=== PATIENT | female | born 2005 | race Two or more races ===

== ENCOUNTER 2024-11-25 01:49 | Emergency (ER) | payer MEDICAID, SELFPAY ==
[~2024-11-25] VITALS: Ht 170.2 cm; Wt 144.6 kg
--- NOTE | 2024-11-25 02:32 | ED.PDOC ---
GI ASSESSMENT HPI Comments 19-year-old female came to ER for GI bleed. Patient has no history of abdominal surgeries. 11:00 p.m. last night, patient admitted bathroom, was complaining of abdominal pain, had an episode of nausea and vomiting, had an episode of diarrhea and was surprised when she saw bright red blood with her stools. No prior history of GI bleed Chief Complaint: GI Bleed Time Seen by MD: 02:31 Primary Care Provider: ELZBIETA Fregoso Notes: Nurses Notes Allergies: Coded Allergies: Penicillins (Verified Allergy, Unknown, 09/13/14) Uncoded Allergies: PENICILLIN (Allergy, Mild, RASH, 09/23/12) Information Source: Patient Mode of Arrival: Ambulatory Timing: Hours Duration: Minutes Prehospital treatment: None Quality: Aching Vomitus: Watery Stool: Blood Streaked, Loose, Watery Severity: Moderate Recent: None Recent Hx of: None Pain Location: Epigastric Modifying Factors: Nothing Associated sign and symptoms: Nausea, Vomiting, Diarrhea, Abdominal Pain, Blood in Stool Past Medical History PAST MEDICAL HISTORY: Denies Surgical History: Tonsillectomy Surgical History (Other): Jaw surgery 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 Family History Family History: No family hx of Cancer, No family hx of DM, No family hx of Heart delia, No family hx of HTN Social History Smoker: Secondhand Alcohol: Denies ETOH Use Drugs: Denies Drug Use Lives In: Home Constitutional: denies: chills, diaphoresis, fatigue, fever, malaise, sweats, weakness, others EENTM: denies: blurred vision, double vision, ear bleeding, ear discharge, ear drainage, ear pain, ear ringing, eye pain, eye redness, hearing loss, mouth pain, mouth swelling, nasal discharge, nose bleeding, nose congestion, nose pain, photophobia, tearing, throat pain, throat swelling, voice changes, others Respiratory: denies: cough, hemoptysis, orthopnea, SOB at rest, shortness of breath, SOB with excertion, stridor, wheezing, others Cardiovascular: denies: chest pain, dizzy spells, diaphoresis, Dyspnea on exertion, edema, irregular heart beat, left arm pain, lightheadedness, palpitations, PND, syncope, others Gastrointestinal: reports: abdominal pain, blood streaked bowels, diarrhea, nausea, vomiting Physical Exam General Appearance: No Apparent Distress, Normal HEENT: Normal ENT Inspection, Pharynx Normal, TMs Normal Neck: Full Range of Motion, Non-Tender, Normal, Normal Inspection Respiratory: Chest Non-Tender, Lungs Clear, No Accessory Muscle Use, No R espiratory Distress, Normal Breath Sounds Cardiovascular: No Edema, No JVD, No Murmur, No Gallop, Normal Peripheral Pulses, Regular Rate/Rhythm Breast Exam: Deferred Gastrointestinal: Epigastric, No Organomegaly, No Pulsatile Mass, Normal Bowel Sounds, Soft, Tenderness Genitalia: Deferred Pelvic: Deferred Rectal: Deferred Extremities: No calf tenderness, Normal capillary refill, Normal inspection, Normal range of motion, Non-tender, No pedal edema Musculoskeletal : Apperance: Normal Neurologic: Alert, manager games II-XII nml as Tested, No Motor Deficits, Normal Affect, Normal Mood, No Sensory Deficits Cerebellar Function: Normal Reflexes: Normal Skin: Dry, Normal Color, Warm Lymphatic: No Adenopathy Was a procedure done? Was a procedure done?: No GI differential Dx Differential Diagnosis: Constipation, Diverticular disease, Gastritis/PUD, Gastroenteritis, GI hemorrhage, UTI, Urolithiasis, Anemia X-Ray, Labs, Meds, VS Vital Signs Date Time Temp Pulse Resp B/P (MAP) Pulse Ox O2 Delivery O2 Flow Rate FiO2 11/25/24 03:50 98.5 90 18 143/89 (107) 98 98.5 11/25/24 03:50 90 18 98 Room Air 11/25/24 02:20 97.8 95 16 118/61 (80) 98 97.8 Lab Test 11/25/24 02:36 11/25/24 02:25 Range/Units Urine Color Light-brown Yellow Urine Clarity Turbid H Clear Urine pH 5.5 5.0-9.0 Urine Specific [place] 1.017 1.001-1.035 Urine Protein 1+ H Negative Urine Ketones 1+ H Negative Urine Blood 3+ H Negative /uL Urine Nitrite Negative Negative Urine Bilirubin Negative Negative Urine Urobilinogen Normal Negative mg/dL Urine Leukocyte Esterase 1+ Negative /uL Urine RBC 15 0 - 4 /hpf Urine Microscopic WBC 11 H 0-5 /HPF Urine Squamous Epithelial Cells Few <5 /hpf Urine Bacteria None seen None Seen /hpf Urine Mucus Few None Seen Urine Glucose Normal Normal mg/dL White Blood Count 17.5 H 4.4-10.8 10^3/uL Red Blood Count 5.59 H 4.0-5.20 10^6/uL Hemoglobin 14.9 12.2-16.2 g/dL Hematocrit 44.8 36.0-46.0 % Mean Corpuscular Volume 80.0 80.0-100.0 fL Mean Corpuscular Hemoglobin 26.6 L 28.0-32.0 pg Mean Corpuscular Hemoglobin Concent 33.2 32.0-36.0 g/dL Red Cell Distribution Width 16.0 H 11.8-14.3 % Platelet Count 388 140-450 10^3/uL Mean Platelet Volume 7.4 6.9-10.8 fL Neutrophils (%) (Auto) 88.7 H 37.0-80.0 % Lymphocytes (%) (Auto) 6.0 L 10.0-50.0 % Monocytes (%) (Auto) 5.0 0.0-12.0 % Eosinophils (%) (Auto) 0.2 0.0-7.0 % Basophils (%) (Auto) 0.1 0.0-2.0 % Neutrophils # (Auto) 15.5 H 1.6-8.6 10 ^3/uL Lymphocytes # (Auto) 1.1 0.4-5.4 10 ^3/uL Monocytes # (Auto) 0.9 0-1.3 10 ^3/uL Eosinophils # (Auto) 0 0-0.8 10 ^3/uL Basophils # (Auto) 0 0-0.2 10 ^3/uL Nucleated Red Blood Cells 0.0 % Sodium Level 137 136-145 mmol/L Potassium Level 3.6 3.5-5.1 mmol/L Chloride Level 102 98-107 mmol/L Carbon Dioxide Level 24 20-31 mmol/L Anion Gap 11 5-15 Blood Urea Nitrogen 16 9-23 mg/dL Creatinine 0.90 0.550-1.02 mg/dL Glomerular Filtration Rate Calc 94 >90 mL/min BUN/Creatinine Ratio 17.8 10.0-20.0 Serum Glucose 105 74-106 mg/dL Calcium Level 10.0 8.7-10.4 mg/dL Total Bilirubin 0.5 0.2-1.0 mg/dL Aspartate Amino Transferase (AST) 21 13-40 U/L Alanine Aminotransferase (ALT) 38 7-40 U/L Alkaline Phosphatase 68 46-116 U/L Total Protein 7.7 5.7-8.2 g/dL Albumin 4.9 H 3.2-4.8 g/dL Current Medications Medications (Trade) Dose Ordered Sig/Dionne Route Start Time Stop Time Status Last Admin Famotidine (Pepcid Tablet) 20 mg ONCE ONCE PO 11/25/24 02:15 11/25/24 02:16 DC 11/25/24 03:50 Ondansetron HCl (Zofran Po) 4 mg ONCE ONCE PO 11/25/24 02:15 11/25/24 02:16 DC 11/25/24 03:50 Al Hydrox/Mg Hydrox/Simethicone (Maalox Plus) 15 ml ONCE ONCE PO 11/25/24 02:15 11/25/24 02:16 DC 11/25/24 03:50 Time of 1ST Reevaluation: 02:28 Reevaluation 1ST: Improved Patient Education/Counseling: Diagnosis, Treatment Family Education/Counseling: No Family Present Departure 1 Departure Time of Disposition: 04:53 (Patient's white count was elevated likely in the setting of demargination from vomiting. Patient received medications feeling better. We will discharge patient home with outpatient follow up) Impression: Primary Impression: Gastroenteritis Additional Impression: Bright red blood per rectum Disposition: HOME / SELF CARE / HOMELESS Condition: Stable Additional Instructions: Your workup shows that you likely have colitis. You were prescribed antibiotics. Please take as directed. You referred to the Gastroenterology for further workup. Please call for an appointment. If your symptoms worsen or you have any other concerns please return to the emergency room e-Prescriptions Ciprofloxacin Hcl (Ciprofloxacin Hcl) 500 Mg Tab 1 TAB PO BID for 5 Days, #10 TAB Prov: LAUREN MURPHY MD 11/25/24 Metronidazole (Flagyl) 500 Mg Tab 1 TAB PO TID for 5 Days, #15 TAB Prov: LAUREN MURPHY MD 11/25/24 Discharged With: Self Critical Care Note Critical Care Time?: No Stability Stability form required: No Heart Score Heart Score: Heart Score Response (Comments) Value History N/A 0 EKG N/A 0 Age N/A 0 Risk Factors N/A 0 Troponin N/A 0 Total 0 I personally scribed for LAUREN MURPHY MD ([email or web address]) on 11/25/24 at 02:32. Electronically submitted by Rober Gallo ([email or web address]). LAUREN MURPHY MD Nov 25, 2024 02:32
[2024-11-25 02:38] LABS: Urine Bacteria None Seen /hpf (None Seen)
[2024-11-25 02:43] LABS: Basophils # (auto) 0 10 ^3/uL (0-0.2); Basophils % (auto) 0.1 % (0.0-2.0); Eosinophils # (auto) 0 10 ^3/uL (0-0.8); Lymphocytes # (auto) 1.1 10 ^3/uL (0.4-5.4)
[2024-11-25 02:45] LABS: Eosinophils % (auto) 0.2 % (0.0-7.0); Hematocrit 44.8 % (36.0-46.0); Hemoglobin 14.9 g/dL (12.2-16.2); Mean Corpuscular Hemoglobin 26.6 pg (28.0-32.0); Mean Corpuscular Hgb Conc. 33.2 g/dL (32.0-36.0); Monocytes # (auto) 0.9 10 ^3/uL (0-1.3); Neutrophils # (auto) 15.5 10 ^3/uL (1.6-8.6); Neutrophils % (auto) 88.7 % (37.0-80.0); Platelet Count (auto) 388 10^3/uL (140-450); Red Blood Cells 5.59 10^6/uL (4.0-5.20); White Blood Cell 17.5 10^3/uL (4.4-10.8)
[2024-11-25 03:00] LABS: Alanine Aminotransferase 38 U/L (7-40); Alkaline Phosphatase 68 U/L (46-116); Chloride 102 mmol/L (98-107)
[2024-11-25 03:01] LABS: Albumin 4.9 g/dL (3.2-4.8); Anion Gap 11 (5-15); Aspartate Aminotransferase 21 U/L (13-40); BUN/Creatinine Ratio 17.8 (10.0-20.0); Bilirubin, Total 0.5 mg/dL (0.2-1.0); Blood Urea Nitrogen 16 mg/dL (9-23); Carbon Dioxide 24 mmol/L (20-31); Glucose 105 mg/dL (74-106); Potassium 3.6 mmol/L (3.5-5.1); Sodium 137 mmol/L (136-145); Total Protein 7.7 g/dL (5.7-8.2)
[2024-11-25 03:05] LABS: Urine Blood 3+ /uL (Negative); Urine Clarity Turbid (Clear); Urine Color Light-Brown (Yellow); Urine Mucus FEW (None Seen); Urine Protein, UAD 1+ (Negative); Urine Specific Gravity 1.017 (1.001-1.035); Urine Squamous Epithelial Cell FEW /hpf (<5); Urine Urobilinogen Normal (Negative); Urine WBC 11 /HPF (0-5); Urine pH 5.5 (5.0-9.0)
[2024-11-25 03:50] VITALS: BP 143/89; PULSE 90; RESP 18; TEMP 98.5; O2SAT 98
[2024-11-25] MEDS: MAALOX PLUS or MAALOX 30 ML PO ONE (03:50)
[2024-11-25] MEDS: FAMOTIDINE 20 MG TAB PO ONE (03:50)
[2024-11-25] MEDS: ONDANSETRON ODT 4 MG TAB PO ONE (03:50)
[2024-11-25] MEDS ORDERED: METR-344 PO (04:56)
[2024-11-25] MEDS ORDERED: CIPR500T4 PO (04:56)
[2024-11-25] MEDS: metroNIDAZOLE 500 MG TAB PO ONE (05:13)
[2024-11-25] MEDS: CIPROFLOXACIN HCL 500 MG TAB PO ONE (05:13)
== END 2024-11-25 05:14 | disposition home or self-care (01) ==
LOC: ER 01:49
DX: K52.9 Noninfective gastroenteritis and colitis, unspecified (principal); K62.5 Hemorrhage of anus and rectum; F17.200 Nicotine dependence, unspecified, uncomplicated; Z90.89 Acquired absence of other organs; Z88.0 Allergy status to penicillin
CPT/HCPCS: 36415; 80053; 81001; 85025; 99284; Q0162

== ENCOUNTER 2025-06-11 23:59 | Emergency (ER) | payer SELFPAY ==
[~2025-06-11] VITALS: Ht 167.6 cm; Wt 133.2 kg
[~2025-06-11 23:59] MED LIST: CIPR500T4 PO; METR-344 PO
--- NOTE | 2025-06-12 00:13 | ED.PDOC ---
History of Present Illness(SKN HPI Comments 19-year-old, morbidly obese female presents with chief complaint of abscess to her tailbone 4, approximately, 2 weeks. Chief Complaint: Abscess Time Seen by MD: 00:52 Primary Care Provider: ELZBIETA History of Present Illness: Nurses Notes, Medications, Allergies Allergies: Coded Allergies: Penicillins (Verified Allergy, Unknown, 09/13/14) Uncoded Allergies: PENICILLIN (Allergy, Mild, RASH, 09/23/12) Home Meds Active Scripts Ciprofloxacin Hcl (Ciprofloxacin Hcl) 500 Mg Tab, 1 TAB PO BID for 5 Days, #10 TAB Prov:LAUREN MURPHY MD 11/25/24 Metronidazole (Flagyl) 500 Mg Tab, 1 TAB PO TID for 5 Days, #15 TAB Prov:LAUREN MURPHY MD 11/25/24 Information Source: Patient Mode of Arrival: EMS Severity: Moderate Timing: Weeks Duration: Since onset Prehospital treatment: None Past Medical History PAST MEDICAL HISTORY: Denies Surgical History: Tonsillectomy 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 Family History Family History: No family hx of Cancer, No family hx of DM, No family hx of Heart delia, No family hx of HTN Social History Smoker: Secondhand Alcohol: Denies ETOH Use Drugs: Denies Drug Use Lives In: Home All Other Systems: Reviewed and Negative (Comprehensive review of systems are negative unless otherwise stated in HPI) Physical Exam General Appearance: No Apparent Distress, Obese HEENT: Pharynx Normal Neck: Full Range of Motion, Non-Tender Respiratory: Lungs Clear, No Respiratory Distress, Normal Breath Sounds Cardiovascular: No Murmur, Normal Peripheral Pulses, Regular Rate/Rhythm Breast Exam: Deferred Gastrointestinal: No Organomegaly, Non Tender, No Pulsatile Mass, Normal Bowel Sounds, Soft Genitalia: Deferred Pelvic: Deferred Rectal: Deferred Extremities: Normal range of motion Musculoskeletal : Apperance: Normal Neurologic: Alert, No Motor Deficits, Normal Affect, Normal Mood, No Sensory Deficits Cerebellar Function: Normal Reflexes: NOT DONE Skin: Dry, Normal Color, Warm, Wounds (Hard non fluctuant lump to coccyx with surrounding erythema no noted drainage or central opening) Lymphatic: No Adenopathy Was a procedure done? Was a procedure done?: No Differential Diagnosis (INTG) Abscess: Abscess, Bacteremia, Cellulitis, Erysipelas, Gas Gangrene X-Ray, Labs, Meds, VS Vital Signs Date Time Temp Pulse Resp B/P (MAP) Pulse Ox O2 Delivery O2 Flow Rate FiO2 06/12/25 03:07 100.8 93 18 114/71 (85) 100 100.8 06/12/25 03:07 93 18 100 Room Air 06/12/25 00:07 98.6 93 18 148/102 97 98.6 X-Ray, Labs, Meds, VS Comment Script trial of antibiotics and NSAID. Advised to take medication as prescribed side effects discussed. Advised to follow up with his PCP in two days, urgent care, or back in the ER for wound re-evaluation. Advised to keep dressing on, and clean change twice daily. Patient was also advised to return to the ER for increasing pain, numbness, weakness, swelling, fever or chills. Patient indicates understanding and agrees with discharge plan of care. Time of 1ST Reevaluation: 00:52 Reevaluation 1ST: Unchanged Time of 2ND Reevaluation: 02:00 Reevaluation 2ND: Improved Patient Education/Counseling: Diagnosis, Treatment, Need For Follow Up Family Education/Counseling: No Family Present SEPSIS Sepsis Screen Date sepsis recognized/suspect: Jun 12, 2025 Time Sepsis recognized/suspect: 0009 Recent Procedure: No On Antibiotic Therapy: No Respiratory Rate >20: No Heart Rate >90: Yes Temp<36 C (96.8 F) or >38.3 C: No SBP <90 or MAP <65 mmHG: No New Acute Mental Status Change: No Is the patient on CPAP, BIPAP,: No Vital Signs Date Time Temp Pulse Resp B/P (MAP) Pulse Ox O2 Delivery O2 Flow Rate FiO2 06/12/25 03:07 100.8 93 18 114/71 (85) 100 100.8 06/12/25 03:07 93 18 100 Room Air 06/12/25 00:07 98.6 93 18 148/102 97 98.6 Departure 1 Departure Time of Disposition: 02:00 Impression: Primary Impression: Pilonidal abscess Disposition: 01 HOME / SELF CARE / HOMELESS Condition: Stable Discharged With: Self Critical Care Note Critical Care Time?: No Stability Stability form required: No Heart Score Heart Score: Heart Score Response (Comments) Value History N/A 0 EKG N/A 0 Age N/A 0 Risk Factors N/A 0 Troponin N/A 0 Total 0 I personally scribed for ER ([email or web address]) on 06/12/25 at 00:13. Electronically submitted by Marcos Palm ([email or web address]). ER Jun 12, 2025 00:13 AVA TORRES Jun 12, 2025 02:01
[2025-06-12 03:07] VITALS: BP 114/71; PULSE 93; RESP 18; TEMP 100.8; O2SAT 100
[2025-06-12] MEDS: HYDROcodone-ACET 5/325MG TAB PO ONE (03:07)
[2025-06-12] MEDS: KETOROLAC TROMETH 60MG/2ML VIAL IM ONE (03:08)
== END 2025-06-12 03:17 | disposition home or self-care (01) ==
LOC: ER 23:59
DX: L05.01 Pilonidal cyst with abscess (principal); F17.200 Nicotine dependence, unspecified, uncomplicated; Z90.89 Acquired absence of other organs; Z88.0 Allergy status to penicillin
CPT/HCPCS: 96372; 99283; J1885